=== PATIENT | male | born 1975 | race Caucasian/White ===

== ENCOUNTER 2019-04-15 14:57 | Emergency (ER) | payer BC, OTHER ==
[~2019-04-15] VITALS: Ht 172.7 cm; Wt 102.1 kg
[2019-04-15 15:14] VITALS: BP 188/97
[2019-04-15 15:42] LABS: URINE BILIRUBIN NEGATIVE (Negative); URINE BLOOD NEGATIVE (Negative); URINE CLARITY CLEAR; URINE COLOR YELLOW; URINE GLUCOSE-RANDOM* NEGATIVE (Negative); URINE KETONES NEGATIVE (Negative); URINE LEUKOCYTES-REFLEX NEGATIVE (Negative); URINE NITRITE-REFLEX NEGATIVE (Negative); URINE PROTEIN (DIPSTICK) NEGATIVE (Negative); URINE SPECIFIC GRAVITY 1.015 (1.005-1.035); URINE UROBILINOGEN 0.2 E.U./dl (0.2-1.0)
[2019-04-15 16:34] LABS: ABSOLUTE NEUTROPHILS 4.1 thou/uL (1.4-8.2); BASOPHILS 1.1 % (0.0-2.0); EOSINOPHILS 1.9 % (0.0-3.0); HEMATOCRIT 42.9 % (42.0-52.0); HEMOGLOBIN 14.6 gm/dL (14.0-18.0); LYMPHOCYTES 26.2 % (24.0-44.0); MCHC 34.1 g/dL (28.0-37.0); MCV 90.8 fL (80.0-100.0); MONOCYTES 7.6 % (1.0-8.0); PLATELET COUNT 232 thou/uL (150-400); POLYS 63.2 % (36.0-66.0); RBC 4.72 mil/uL (4.50-6.00); RDW 11.7 % (10.5-14.5); WBC 6.5 thou/uL (4.0-11.0)
[2019-04-15 16:41] LABS: ANION GAP 11 mmol/L (7-16); BUN 12 mg/dL (7-18); CALCIUM 9.5 mg/dL (8.5-10.1); CHLORIDE 98 mmol/L (98-107); CO2 29 mmol/L (21-32); GLUCOSE 105 mg/dL (74-106); POTASSIUM 4.1 mmol/L (3.5-5.1); SODIUM 138 mmol/L (136-145)
[2019-04-15 16:47] LABS: DIRECT BILIRUBIN < 0.1 mg/dL (<0.1-0.2); SGOT 42 U/L (15-37); SGPT 62 U/L (30-65); TOTAL BILIRUBIN 0.4 mg/dL (<0.1-1.0)
== END 2019-04-15 18:31 | disposition home or self-care (01) ==
LOC: ER 14:57
PROVIDERS: Emergency Medicine
DX: K59.00 Constipation, unspecified (principal); R10.11 Right upper quadrant pain; F17.210 Nicotine dependence, cigarettes, uncomplicated

== ENCOUNTER 2020-01-02 20:00 | Emergency (ER) | payer OTHER ==
[~2020-01-02] VITALS: Ht 172.7 cm; Wt 106.6 kg
[2020-01-02 20:29] LABS: ABSOLUTE NEUTROPHILS 8.1 thou/uL (1.4-8.2); BASOPHILS 0.7 % (0.0-2.0); EOSINOPHILS 0.5 % (0.0-3.0); HEMATOCRIT 43.4 % (42.0-52.0); HEMOGLOBIN 14.7 gm/dL (14.0-18.0); LYMPHOCYTES 18.2 % (24.0-44.0); MCH 31.4 pg (26.0-34.0); MCHC 33.8 g/dL (28.0-37.0); MCV 92.9 fL (80.0-100.0); PLATELET COUNT 212 thou/uL (150-400); POLYS 73.6 % (36.0-66.0); RBC 4.67 mil/uL (4.50-6.00); RDW 12.6 % (10.5-14.5)
[2020-01-02 20:37] LABS: ANION GAP 12 mmol/L (7-16); BUN 8 mg/dL (7-18); CALCIUM 9.4 mg/dL (8.5-10.1); CHLORIDE 97 mmol/L (98-107); CO2 23 mmol/L (21-32); CREATININE 1.1 mg/dL (0.7-1.3); GLUCOSE 108 mg/dL (74-106); POTASSIUM 3.4 mmol/L (3.5-5.1); SODIUM 132 mmol/L (136-145)
[2020-01-02 20:47] LABS: ALBUMIN 4.2 g/dL (3.4-5.0); SGOT 76 U/L (15-37); SGPT 144 U/L (30-65); TOTAL BILIRUBIN 0.5 mg/dL (0.2-1.0); TOTAL PROTEIN 8.1 g/dL (6.4-8.2); TROPONIN-I <0.06 ng/mL (<0.06)
[2020-01-02 21:58] VITALS: BP 169/89
[2020-01-02] MEDS ORDERED: HYDROCHLOROTHIA25 M2 PO (22:14)
--- NOTE | 2020-01-03 12:31 | EKG ---
[facility] [place] [address] ELECTROCARDIOGRAM REPORT Name: LUCYMILES CR Room #: DEP [facility]#: [id number] Admission: 01/02/20 Attend Phys: Discharge: 01/02/20 Date of : 79 Report #: [id number] THIS REPORT FOR: cc: BRIE - Priscila family physician/PCP BRIE - No family physician/PCP Julio Thorpe MD [facility] THIS REPORT FOR: //name// [facility] ED Test Date: 2020-01-02 Test Time: 20:20:32 Pat Name: MILES AYALA Department: Room: Gender: Studio Grip: ZOE : 1975 Requested By: Brett Pastrana Order Number: [id number] MD: Julio Thorpe Measurements Intervals [place] Rate: 108 P: 56 NC: 131 QRS: 8 QRSD: 100 T: 15 QT: 341 QTc: 457 Interpretive Statements Sinus tachycardia RSR' in V1 or V2, probably normal variant Small inferior Q waves No previous ECG available for comparison Electronically Signed On 01-03-2020 12:31:03 CDT by Julio Thorpe [email or web address] <ELECTRONICALLY SIGNED> By: Julio Thorpe MD, FACC 01/03/20 1231 19 19 Julio Thorpe MD, [facility] /EPI
== END 2020-01-02 21:58 | disposition home or self-care (01) ==
LOC: ER 20:00
PROVIDERS: Emergency Medicine
DX: I10 Essential (primary) hypertension (principal); Z87.891 Personal history of nicotine dependence